=== PATIENT | male | born 1975 | race Asian ===

== ENCOUNTER 2024-08-07 04:32 | Day surgery (SDC) | payer BC ==
[2024-07-31 12:15] VITALS: BMI 32.8
[2024-08-07 10:10] VITALS: TEMP 97.9
[2024-08-07 10:53] VITALS: BP 125/85; PULSE 83; RESP 17
== END 2024-08-07 10:53 | disposition home or self-care (01) ==
LOC: JASU-ENDO 04:32
PROVIDERS: ATTEND Internal Medicine Gastroenterology
PROC: 0DB98ZX Excision of Duodenum, Via Natural or Artificial Opening Endoscopic, Diagnostic (ICD-10-PCS; 2024-08-07)
PROC: 0DB68ZX Excision of Stomach, Via Natural or Artificial Opening Endoscopic, Diagnostic (ICD-10-PCS; 2024-08-07)
PROC: 0DBL8ZX Excision of Transverse Colon, Via Natural or Artificial Opening Endoscopic, Diagnostic (ICD-10-PCS; principal; 2024-08-07 10:00)
DX: Z12.11 Encounter for screening for malignant neoplasm of colon (principal); D12.3 Benign neoplasm of transverse colon; K29.50 Unspecified chronic gastritis without bleeding
CPT/HCPCS: 82962; 88305-TC; 88342-TC